=== PATIENT | female | born 1990 | race Caucasian/White ===

== ENCOUNTER → 2021-06-11 | Outpatient (REF) | payer BC | LOC: M LABDRWCV 15:43 | PROVIDERS: ATTEND Obstetrics & Gynecology Reproductive Endocrinology | DX: Z32.00 Encounter for pregnancy test, result unknown (principal) ==

== ENCOUNTER → 2021-06-13 | Outpatient (REF) | payer BC ==
[2021-06-13 16:51] LABS: THYROID STIMULATING HORMONE 1.57 uIU/ML (0.358-3.740)
== END ==
LOC: M LABDRWCV 15:51
PROVIDERS: ATTEND Obstetrics & Gynecology Reproductive Endocrinology
DX: Z13.29 Encounter for screening for other suspected endocrine disorder (principal); Z32.01 Encounter for pregnancy test, result positive